=== PATIENT | female | born 1975 | race Caucasian/White ===

== ENCOUNTER 2024-12-20 09:24 | Outpatient (REF) | payer OTHER, SELFPAY ==
--- OUTSIDE RECORDS SUMMARY | 2024-12-19 14:00 | XMS_ITS | Encounter Summary ---
Author Organization [facility] [employer] [facility] Address [address] [place] [address] [address] [place] [address] Care Team Providers Care Gunsmith Apprentice Name Role Phone Toro Anthony CNP Primary Care Provider [phone] Reason for Referral * Imaging (Routine) - Closed Specialty Diagnoses / Procedures Referred By Contkiah t Referred To Contact Radiology Diagnoses Encounter for screening mammogram for breast cancer Procedures BI Mammogram Screening Tomosynthesis Bilateral Toro Anthony CNP [address] [place] [address] Phone: tel: fax: [address] Phone: tel: fax: Referral ID Status Reason Start Date Expiration Date Visits Re quested Visits Authorized [id number] Closed 12/19/2024 12/19/2025 1 1 Encounter Details Date Type Department Care Team (Late st Contact Info) Description 12/19/2024 2:00 PM EDT Office Visit [facility] [address] [place] [address] Toro Anthony CNP [address] [place] [address] Encounter for screening for malignant neoplasm of colon (Primary Dx); Encounter for physical examination; Encounter for screening mammogram for breast cancer; Screening for colon cancer Social History Tobacco Use Types Packs/Day Years Used Date Smoking Tobacco: Never Passive Smoke Exposure: Never Smokeless Tobacco: Never Tobacco Cessation:Counseling Given: Not Answered Housing Stability Answer Date Recorded What is your housing situation today? I have desiree salazar 12/11/[address] you li ve. Do you have problems with any of the following? None of the above 12/11/2024 Food Insecurity Answer Date Recorded Within the past 12 months, y ou worried that your food would run out before you got money to buy more: Never True 12/11/2024 Within the past 12 months,th e food you bought just didn't last and you didn't have enough money to get more: Never True Transportation Answer Date Recorded In the past 12 months, has l ack of transportation kept you from medical appts, meetings, work or from getting things needed for daily living? No 12/11/2024 Utilities Answer Date Recorded In the past 12 months, has t he electric, gas, oil or water company threatened to shut off services in your home? No 12/19/2024 Internet Access Answer Date Recorded Internet Access Q1 No 12/19/2024 Internet Access Q2 I do not want or need it 11/22 Comments No Sex and Gender Information Value Date Recorded Sex Assigned at Female 12/19/2024 1:43 PM EDT Legal Sex Female 2:28 PM EDT Gender Identity Female 12/19/2024 1:43 PM EDT Sexual Orientation Straight 12/19/2024 1: 43 PM EDT documented as of this encounter Last Filed Vital Signs Vital Sign Reading Time Taken Comments Blood Pressure 118/82 12/19/2024 2:20 PM EDT Pulse 72 12/19/2024 2:20 PM EDT Temperature 37.1 C (98.7 F) 12/19/2024 2:20 PM EDT Respiratory Rate 14 12/19/2024 2:20 PM EDT Oxygen Saturation 98% 12/19/2024 2:20 PM EDT Inhaled Oxygen Concentration - - Weight 87.5 kg (193 lb) 12/19/2024 2:20 PM EDT Height 167.6 cm (5' 6 ) 12/19/2024 2:20 PM EDT Body Mass Index 31.15 12/19/2024 2:20 PM EDT documented in this encounter Progress Notes * Toro Anthony CNP - 12/19/2024 2:00 PM EDT Subjective: Olivia Adam is a 49 y.o. female who presents to the office for a new patient visit. Previous PCP unknown. Interim history: none Current concerns: Breast pain in R breast. Pt just looking to update mammogram and cervical cancer screening. Problem List[1] Surgical History[2] Family History[3] Social History Living situation: has secure housing Employment/Education: not reported Diet/exercise: not reported Substance use: denies all substance use Sexual activity: not sexually active Contraception: none Mental health: No data recorded No data recorded Patient's last menstrual period was 12/16/2024. Regular periods occurring each month Allergies[4] Review of Systems Vitals: 12/19/24 1420 BP: 118/82 BP Location: Left arm Patient Position: Sitting BP Cuff Size: Adult Pulse: 72 Resp: 14 Temp: 98.7 ??F (37.1 ??C) TempSrc: Oral SpO2: 98% Weight: 193 lb (87.5 kg) Height: 5' 6 (1.676 m) Physical Exam Constitutional: Appearance: Normal appearance. She is normal weight. Cardiovascular: Rate and Rhythm: Normal rate and regular rhythm. Pulses: Normal pulses. Heart sounds: Normal heart sounds. No murmur heard. No friction rub. No gallop. Pulmonary: Effort: Pulmonary effort is normal. No respiratory distress. Breath sounds: Normal breath sounds. No wheezing or rales. Chest: Breasts: Right: Normal. No swelling, bleeding, inverted nipple, mass, nipple discharge, skin change or tenderness. Left: Normal. No swelling, bleeding, inverted nipple, mass, nipple discharge, skin change or tenderness. Comments: +tenderness to palpation in upper outer quadrant of R breast, no masses palpated Lymphadenopathy: Upper Body: Right upper body: No supraclavicular, axillary or pectoral adenopathy. Left upper body: No supraclavicular, axillary or pectoral adenopathy. Neurological: General: No focal deficit present. Mental Status: She is alert and oriented to person, place, and time. Psychiatric: Mood and Affect: Mood normal. Behavior: Behavior normal. Thought Content: Thought content normal. Judgment: Judgment normal. Assessment & Plan Encounter for screening for malignant neoplasm of colon Encounter for physical examination 1. Anticipatory guidance discussed. Specific topics reviewed: drugs, ETOH, and tobacco, importance of regular dental care, importance of regular exercise, importance of varied diet, minimize junk food, and sex; STD and prevention as appropriate. 2. Age appropriate screenings discussed. 3. Pt declines all due vaccinations. Routine Screening and Health Maintenance Optometry: No Dentist: No ASCVD risk: 49 y.o. femaleobese sedentary lifestyle Lab Review: orders written for new lab studies as appropriate; see orders Routine Cancer Screening Breast CA: due, referred Cervical CA: due, will complete at f/u Colon CA: due, referred Lung CA: not indicated Orders: Lipid Panel, Standard; Future CBC auto differential; Future Comprehensive Metabolic Panel; Future Hemoglobin A1c; Future HIV-1/2 Antigen and Antibodies, Fourth Generation, with Reflexes; Future Hepatitis C Antibody with Reflex to HCV, RNA, Quantitative, Real-Time PCR; Future Encounter for screening mammogram for breast cancer Normal breast exam today, no masses palpated, no skin changes Advised routine mammography and SBE Orders: BI Mammogram Screening Tomosynthesis Bilateral; Future Screening for colon cancer Orders: Cologuard?? colon cancer screening Current Medications[5] There is no immunization history on file for this patient. Follow up in about 1 month (around 01/19/2025) for f/u for pap smear . [1] Patient Active Problem List Diagnosis Acute appendicitis [2] Past Surgical History: Procedure Laterality Date APPENDECTOMY 05/2024 [3] Family History Problem Relation Name Age of Onset Diabetes Mother Other (HTN) Mother Diabetes Father [4] No Known Allergies [5] Current Outpatient Medications Medication Sig Dispense Refill acetaminophen (Tylenol) 500 MG tablet Take 1,000 mg by mouth every 8 (eight) hours. docusate sodium (Colace) 100 MG capsule Take 1 capsule by mouth 2 times daily. oxyCODONE (Roxicodone) 5 MG immediate release tablet Take 5 mg by mouth every 4 (four) hours if needed. No current facility-administered medications for this visit. documented in this encounter Plan of Treatment Upcoming Encounters Date Type Department Care Team ([facility] st Contact Info) Description 01/09/2025 9:30 AM EST Procedure Visit [facility] [address] [place] [address] Toro Anthony CNP [address] [place] [address] Scheduled Orders Name Type Priority Associated Diagnoses Orde r Schedule Lipid Panel, Standard Lab Routine Encounter for physical examination Expected: 12/19/2024 (Approximate), Expires: 12/19/2025 CBC auto differential Lab Routine Encounter for physical examination Expected: 12/19/2024 (Approximate), Expires: 12/19/2025 Comprehensive Metabolic Panel Lab Routine Encounter for physical examination Expected: 12/19/2024 (Approximate), Expires: 12/19/2025 Hemoglobin A1c Lab Routine Encounter for physical examination Expected: 12/19/2024 (Approximate), Expires: 12/19/2025 HIV-1/2 Antigen and Antibodies, Fourth Generation, with Reflexes Lab Routine Encounter for physical examination Expected: 12/19/2024 (Approximate), Expires: 12/19/2025 Hepatitis C Antibody with Reflex to HCV, RNA, Quantitative, Real-Time PCR Lab Routine Encounter for physical examination Expected: 12/19/2024, Expires: 12/19/2025 BI Mammogram Screening Tomosynthesis Bilateral Imaging Routine Encounter for screening mammogram for breast cancer Expected: 12/19/2024, Expires: 02/18/2026 Cologuard colon cancer screening Lab Routine Screening for colon cancer Ordered: 12/19/2024 documented as of this encounter Visit Diagnoses Diagnosis Encounter for screening for malignant neoplasm of colon- Primary Encounter for physical examination Encounter for screening mammogram for breast cancer Screening for colon cancer Special screening for malignant neoplasms, colon documented in this encounter Care Teams Gunsmith Apprentice Relationship Specialty Start Date End Date Toro Anthony CNP [address] [place] [address] PCP - General Family Medicine 12/19/24 documented as of this encounter
--- OUTSIDE RECORDS SUMMARY | 2024-12-20 10:30 | XMS_ITS | Encounter Summary ---
Author Organization [employer] Address [address] [facility] [address] [place] [address] Care Team Providers Care Pinsetter Mechanic Automatic Name Role Phone Toro Anthony JULIUS Primary Care Provider [phone] Encounter Details Date Type Department Care Team (Latest Contact Info) Description 12/19/2024 Travel Social History Tobacco Use Types Packs/Day Years Used Date Smoking Tobacco: Never Passive Smoke Exposure: Never Smokeless Tobacco: Never Housing Stability Answer Date Recorded What is [...] PM EDT documented as of this encounter Plan of Treatment Upcoming Encounters Date Type Department Care Team (Late st Contact Info) Description 01/09/2025 9:30 AM EST Procedure Visit [facility] [address] [place] [address] Toro Anthony CNP [address] [place] [address] documented as of this encounter Visit Diagnoses Not on filedocumented in this encounter Care Teams Pinsetter Mechanic Automatic Relationship Specialty Start Date End Date Toro Anthony CNP [address] [place] [address] PCP - General Family Medicine 12/19/24 documented as of this encounter
--- OUTSIDE RECORDS SUMMARY | 2024-12-20 10:30 | XMS_ITS | Patient Health Record ---
Author Organization [facility] Address [address] [place] [address] Support Name Relationship Address Phone rjuanito Emergency Contact [address] [place] [address] Olivia Adam Guarantor Unknown Reason For Referral No Information Plan Of Treatment Pending Test Test Name Order Date Ultrasound : Breasts, bilateral 05/03/19 18 DEXA 05/02/2017 MAMMOGRAM, SCREENING; B/L US as needed 0 05/02/2017 Insurance Providers Payer Name Payer Address Payer Phone Subscriber Number Group Number Insured Name Patient Relationship to Insured Coverage Start Date Coverage End Date [facility] CLAIM PROCESS DEPT. [address] [address] [place] [address] [id number] Olivia Adam Self - patient is the insured Medical (General) History Surgical History Surgery Date(Month/Year) tubal ligation 2002
--- OUTSIDE RECORDS SUMMARY | 2024-12-20 10:30 | XMS_ITS | Clinical Summary ---
Author Organization [facility] Address [address] [place] [address] Phone Care Team Providers Care Correspondent Name Role Phone Physician, No Pcp Primary Care Provider Unavaila ble Allergies No known active allergies Medications oxyCODONE (ROXICODONE) 5 mg immediate release tablet Take 1 tablet (5 mg total) by mouth every 4 (four) hours if needed for moderate pain. Max Daily Amount: 30 mg 12 tablet 5 Active Additional Information Patient not taking.Reported on 06/18/2024 acetaminophen (TYLENOL) 500 mg tablet Take 2 tablets (1,000 mg total) by mouth every 8 (eight) hours. 30 tablet 5 Active Active Problems Problem Noted Date Diagnosed Date Acute appendicitis 06/05/2024 Surgical History Surgery Date Site/Laterality Comments APPENDECTOMY Medical History Medical History Date Comments No pertinent past medical history Social History Tobacco Use Types Packs/Day Years Used Date Smoking Tobacco: Never Smokeless Tobacco: Never Tobacco Cessation:Counseling Given: Not Answered Alcohol Use Standard Drinks/Week Comments Never 0 (1 standard drink = 0.6 oz pur e alcohol) Interpersonal Safety Answer Date Record ed Physical Abuse Unrecognized value 06/05/2024 Verbal Abuse Unrecognized value 06/05/2024 Comments Unknown Sex and Gender Information Value Date Recorded Sex Assigned at Not on file Legal Sex Female 11:24 AM EDT Gender Identity Not on file Sexual Orientation Not on file Obstetrics History Last Filed Vital Signs Vital Sign Reading Time Taken Comments Blood Pressure 109/77 06/18/2024 9:01 AM EDT Pulse 86 06/18/2024 9:01 AM EDT Temperature 36.6 C (97.8 F) 06/18/2024 9:01 AM EDT Respiratory Rate 15 06/06/2024 11:34 AM EDT Oxygen Saturation 99% 06/06/2024 1:00 PM EDT Inhaled Oxygen Concentration - - Weight 87.3 kg (192 lb 6.4 oz) 06/18/2024 9:01 A M EDT Height 167.6 cm (5' 6 ) 06/18/2024 9:01 AM EDT Body Mass Index 31.05 06/18/2024 9:01 AM EDT Plan of Treatment Health Maintenance Due Date Last Done Comments Breast Cancer Screening 1974 Colorectal Cancer Screening: Colonoscopy 1974 DTaP,Tdap,and Td Vaccines (1 - Tdap) 1993 Hepatitis B Vaccines (1 of 3 - 19+ 3-dose series) 1993 Cervical Cancer Screening: P ap Smear 1995 Depression Screening 02/21/2024 Pneumococcal Vaccine: 50+ Ye ars (1 of 1 - PCV) 2024 Zoster Vaccines (1 of 2) 2024 HIV Screening 06/05/2024 Hepatitis C Screening 06/05/2024 Social Influencers of Health Screening 06/05/2024 COVID-19 Vaccine (1 - 2023-2 5 season) 2024 Influenza Vaccine (#1) 2024 RSV Immunization Adult Patie nts (1 - 1-dose 75+ series) 2049 HIB Vaccines Aged Out No longer eligi ble based on patient's age to complete this topic HPV Vaccines Aged Out No longer eligi ble based on patient's age to complete this topic Hepatitis A Vaccines Aged Out No long er eligible based on patient's age to complete this topic IPV Vaccines Aged Out No longer eligi ble based on patient's age to complete this topic MMR Vaccines Aged Out No longer eligi ble based on patient's age to complete this topic Meningococcal ACWY Vaccine Aged Out N o longer eligible based on patient's age to complete this topic Meningococcal B Vaccine Aged Out No l onger eligible based on patient's age to complete this topic RSV Immunization Patients Un aden 20 months Aged Out No longer eligible b ased on patient's age to complete this topic Varicella Vaccines Aged Out No longer eligible based on patient's age to complete this topic Insurance [facility] [place] [address] Care Teams Correspondent Relationship Specialty Start Date End Date Physician, No Pcp PCP - General 06/05/24
--- OUTSIDE RECORDS SUMMARY | 2024-12-20 10:30 | XMS_ITS | Encounter Summary ---
Author Organization [employer] Address [address] [facility] [address] [place] [address] Care Team Providers Care Accounting Recruiter Name Role Phone Unavailable Primary Care Provider Unavailabl e Reason for Visit * Reason Onset Date Comments chart prep 12/16/2024 Encounter Details Date Type Department Care Team ([facility] st Contact Info) Description 12/16/2024 Telephone C [facility] [address] [place], [place] [id number] [place] chart prep Social History Tobacco Use Types Packs/Day Years Used Date Smoking Tobacco: Never Assessed Housing Stability Answer Date Recorded What is [...] to shut off services in your home? Yes 12/11/2024 Internet Access Answer Date Recorded Internet Access Q1 Yes 12/11/2024 Internet Access Q2 Not on file 12/11/2024 Comments Unknown Sex and Gender Information Value Date Recorded Sex Assigned at Female 12/19/2024 1:43 PM EDT Legal Sex Female 2:28 PM EDT Gender Identity Female 12/19/2024 1:43 PM EDT Sexual Orientation Straight 12/19/2024 1: 43 PM EDT documented as of this encounter Miscellaneous Notes * Telephone Encounter - Reina Ward [place] - 12/16/2024 1:54 PM EDT Chart Prep Labs: not applicable Images: not applicable Referrals: not applicable Vaccines due: Covid, Flu, PCV20, Tdap, Hep B, Td, Zoster, and DTAP Screenings: colonoscopy, mammogram, pap smear, STI screening, and LMP Overdue care gaps: SBIRT, PHQ-9, MARCUS-7, Oral health screening, Disability screen, and Tobacco documented in this encounter Plan of Treatment Upcoming Encounters Date Type Department Care Team ([facility] st Contact Info) Description 01/09/2025 9:30 AM EST Procedure Visit [facility] [address] [place] [address] Toro Anthony, JULIUS [address] [place] [address] documented as of this encounter Visit Diagnoses Not on filedocumented in this encounter
--- OUTSIDE RECORDS SUMMARY | 2024-12-20 10:30 | XMS_ITS | Patient Health Record ---
Author Organization [facility] Address [address] [place], [place] [address] Care Team Providers Care Sonography Technician Name Role Phone Viktor Toussaint Primary Care Provider Allergies No Known Allergies Reason For Referral No Information Medications Medication SIG (Take, Route, Frequency, Duration) Notes Start Date End Date Status Gabapentin 100 MG 2 capsule Orally at bedtime; Duration: 30 day(s) 04/23/2018 Not-Taking Pantoprazole Sodium 40 MG 1 tablet Orall y Once a day; Duration: 90 days 02/04/2022 Active Immunizations Vaccine Route Administration Date Status Comme nts Tdap Unknown 04/23/2018 Administered sent to her pharmacy. Social History Tobacco Use: Social History Observation Description Date Details (start date - stop date) Never Smoker NA - NA Tobacco Use/Smoking Question Answer Notes Are you a nonsmoker Alcohol Screen (Audit-C) Question Answer Notes Did you have a drink containing alcohol in the p ast year? No Points 0 Interpretation Negative Sexual History Question Answer Notes Had sex in the past 12 months (vaginal, oral, or anal)? Yes with Men only Use protection? No Have you ever had a Sexually transmitted disease ? No Tobacco use other than smoking: Question Answer Notes Are you an other tobacco user? No Problems Problem Type SNOMED Code ICD Code Onset Dates Problem Status W/U Status Risk Notes Problem Mixed hyperlipidemia (314926367) Mixed hyperlipidemia (E78.2) Active confirmed Problem Hypocalcemia (2201951) Hypocalcemia (E83.51) Active confirmed Problem Vitamin D deficiency (66085356) Vitamin D deficiency (E55.9) Active confirmed Problem Abnormal mammogram (320947124) Abnormal mammogram (R92.8) Active confirmed Problem Dental caries (95671241) Dental cavities (K02.9) Active confirmed Problem Obesity (011288695) Obesity (BMI 30-39.9) (E66.9) Active confirmed Problem Urinary tract infectious disease (96677870) Urinary tract infection without hematuria, site unspecified (N39.0) Active confirmed Problem History of nephrolithiasis (349693369) History of nephrolithiasis (Z87.442) Active confirmed Problem Body mass index 30.00 to 34.99 (661131802340162) BMI 34.0-34.9,adult (Z68.34) Active confirmed Problem Mammogram - screening (87877424) Visit for screening mammogram (Z12.31) Active confirmed Problem Impaired glucose tolerance (6701694) Glucose intolerance (E74.39) Active confirmed Problem Fibrocystic breast changes (54890312) Fibrocystic breast disease (FCBD), unspecified laterality (N60.19) Active confirmed Plan Of Treatment Pending Test Test Name Order Date Ultrasound : Abdomen and Pelvis 12/29/19 17 Bilateral Diagnostic Mammogr am with additional views, ultrasound and biopsy if needed. 02/18/2022 Colonoscopy 06/11/2021 Colonoscopy 07/08/2021 BILATERAL Screening Mammogra m with additional views, ultrasound and biopsy if needed 02/11/2022 BILATERAL Screening Mammogra m with additional views, ultrasound and biopsy if needed 06/14/2016 SPIROMETRY 06/14/2016 TYMPANOMETRY 06/14/2016 EKG 06/14/2016 CBC w/DIFF, PLATELET CT. 0053-9 06/15/19 17 COMPREHENSIVE METABOLIC 06/14/2016 COMPREHENSIVE METABOLIC 12/28/2016 HEMOGLOBIN A1c (glycohgb) 12/28/2016 HEMOGLOBIN A1c (glycohgb) 06/14/2016 LIPID SCREEN (CORONARY RISK I) 7 LIPID SCREEN (CORONARY RISK I) 7 URINALYSIS with rfx to URINE CULTURE 09/2016 URINALYSIS with rfx to URINE CULTURE VITAMIN D, 25-HYDROXY, SERUM 06/14/2016 TSH W/RFX TO FREE T4 06/14/2016 CBC W/DIFF, PLATELET CT. 12/28/2016 Insurance Providers Payer Name Payer Address Payer Phone Subscriber Number Group Number Insured Name Patient Relationship to Insured Coverage Start Date Coverage End Date [id number] [address] [place] [address] [id number] Olivia Adam Self - patient is the insured Medical (General) History Medical History History ICD Code Annual physical exam Z00.00 Kidney stones 592.0 Surgical History Surgery Date(Month/Year) Tubilagtion 2002
--- OUTSIDE RECORDS SUMMARY | 2024-12-20 10:30 | XMS_ITS | Clinical Summary ---
Author Organization [facility] [employer] [facility] Address [address] [place] [address] [address] [place] [address] Care Team Providers Care Air Cargo Agent Name Role Phone Toro Anthony CNP Primary Care Provider [phone] Allergies No known active allergies Medications docusate sodium (Colace) 100 MG capsule Take 1 capsule by mouth 2 times daily. 06/06/2024 Active acetaminophen (Tylenol) 500 MG tablet Take 1,000 mg by mouth every 8 (eight) hours. 06/06/2024 Active oxyCODONE (Roxicodone) 5 MG immediate release tablet Take 5 mg by mouth every 4 (four) hours if needed. 06/06/2024 Active Active Problems Problem Noted Date Diagnosed Date Acute appendicitis 06/05/2024 Encounters Date Type Department Care Team Description 12/19/2024 2:00 PM EDT Office Visit [facility] [address] [place] [address] Toro Anthony CNP Encounter for screening for malignant neoplasm of colon (Primary Dx); Encounter for physical examination; Encounter for screening mammogram for breast cancer; Screening for colon cancer 12/19/2024 Travel 12/16/2024 Telephone [facility] [address] [place] [address] [place], [place] chart prep 12/11/2024 Patient Outreach [facility] [address] [place] [phone] Toro Anthony CNP Care Coordination (CHW outreach for SDOH housing search-referral completed ) 12/11/2024 Patient Outreach [facility] [address] [place] [address] Ayan Guzman MD Pre-visit Planning (SDOH screening positive and Tobacco screening negative) from Last 3 Months Family History Medical History Relation Name Comments Diabetes Father Diabetes Mother HTN Mother Relation Name Status Comments Father Mother Social History Tobacco Use Types Packs/Day Years [...] Orientation Straight 12/19/2024 1: 43 PM EDT Last Filed Vital Signs Vital Sign [place] [...] Mass Index 31.15 12/19/2024 2:20 PM EDT Plan of Treatment Upcoming Encounters Date Type Department Care Team ([facility] st Contact Info) Description 01/09/2025 9:30 AM EST Procedure Visit [facility] [address] [place] [address] Toro Anthony, STREET CAR INSPECTOR [address] [place] [address] Health Maintenance Due Date Last Done Comments CT Colonography 1974 Colonoscopy 1974 Colorectal Cancer Screening 1974 Depression Screening 1974 FIT DNA/Cologuard 1974 FIT 1974 FOBT 1974 HIV Screening 1974 Sigmoidoscopy 1974 Family Planning (PISQ) 1989 Hepatitis C Screening 1992 DTaP/Tdap/Td Vaccines (1 - Tdap) 1993 Hepatitis B Vaccines (1 of 3 - 19+ 3-dose series) 1993 Pap Smear 1995 Cervical Cancer Screening 2004 HPV/Cotest 2004 Mammogram 2014 Pneumococcal Vaccine: 50+ Ye ars (1 of 1 - PCV) 2024 Zoster Vaccines (1 of 2) 2024 COVID-19 Vaccine (1 - 2023-2 5 season) 2024 Influenza Vaccine (#1) 2024 Alcohol/Substance Use Screening 12/19/2025 Disability Screening 12/19/2025 12/19/2024 SDOH Screening 12/19/2025 12/19/2024 Tobacco Screening 12/19/2025 12/19/2024 RSV Patients and Pa tients Aged 60 years or older (1 - 1-dose 75+ series) 2049 HIB [...] patient's age to complete this topic Meningococcal Vaccine Aged Out No addy randal eligible based on patient's age to complete this topic RSV under 20 months Aged Out No longe r eligible based on patient's age to complete this topic Rotavirus Vaccines Aged Out No longer eligible based on patient's age to complete this topic Insurance [employer] 2 Care Teams Air Cargo Agent Relationship Specialty Start Date End Date Toro Anthony CNP [address] [place] [address] PCP - General Family Medicine 12/19/24
[2024-12-20 14:06] LABS: MANUAL DIFF FLAG NO
[2024-12-20 14:18] LABS: Hematocrit 38.1 % (37.0-47.0); Hemoglobin 12.3 g/dl (12.0-16.0); Imm Gran Abs Auto 0.01 X10*3/uL (0.00-0.03); Imm Gran Pct Auto 0.2 % (0.0-0.4); Lymphocytes Absolute Auto 1.8 X10*3/uL (1.2-4.9); Mean Corpuscular HGB Conc 32.3 g/dl (31.0-35.0); Mean Corpuscular Hemoglobin 29.6 pg (27.0-33.0); Mean Corpuscular Volume 91.8 fL (80.0-98.0); NRBC Abs Auto 0.000 X10*3/uL (0.0-0.012); NRBC Pct Auto 0.0 /100WBC (0.0-0.2); Platelet Count 331 X10*3/uL (160-400); Red Blood Count 4.15 X10*6/uL (4.20-5.50); White Blood Count 5.2 X10*3/uL (4.8-10.8)
[2024-12-20 14:28] LABS: Alanine Aminotransferase 20 U/L (0-31); Albumin Level 4.0 g/dL (3.5-5.0); Alkaline Phosphatase 53 U/L (39-117); Anion Gap 8 (12-20); Aspartate Amino Transferase 30 U/L (5-31); Blood Urea Nitrogen 11 mg/dL (9-16); Calcium 8.4 mg/dL (8.4-10.2); Carbon Dioxide 26 mmol/L (22-29); Chloride 109 mmol/L (96-108); Cholesterol 208 mg/dL (<200); Estimated Glomerular Filt Rate > 60; HDL Cholesterol 38 mg/dL (>40); Potassium 3.8 mmol/L (3.3-5.1); Sodium 139 mmol/L (135-145); Total Protein 7.2 g/dL (6.5-8.0); Triglycerides 99 mg/dL (<150)
[2024-12-21 07:49] LABS: HIV Num 1 0.05 S/CO (0.00-0.99); ~HepC Num1 0.06 S/CO (0.00-0.79); ~Hepatitis C Antibody Nonreactive (Nonreactive)
== END 2024-12-20 09:25 | disposition home or self-care (01) ==
LOC: HO.CHCLDS 09:24
DX: Z00.00 Encounter for general adult medical examination without abnormal findings (principal); Z11.59 Encounter for screening for other viral diseases; Z11.4 Encounter for screening for human immunodeficiency virus [HIV]
CPT/HCPCS: 36415; 80053; 80061; 83036; 85025; 86803; 87389

== ENCOUNTER 2025-01-09 11:18 | Outpatient (REF) | payer OTHER, SELFPAY ==
--- OUTSIDE RECORDS SUMMARY | 2025-01-09 09:30 | XMS_ITS | Encounter Summary ---
Author Organization [employer] [facility] Address [address] [place] [address] [address], [place] [address] Care Team Providers Care High Density Press Operator Name Role Phone Toro Anthony CNP Primary Care Provider [phone] Reason for Referral * Imaging (Routine) - Authorized Specialty Diagnoses / Procedures Referred By Contac t Referred To Contact Radiology Diagnoses Pelvic pain Procedures US Pelvis Transvaginal Toro Anthony CNP [address] [place] [address] Phone: tel: fax: [address] Phone: tel: fax: Referral ID Status Reason Start Date Expiration Date V isits Requested Visits Authorized [id number] Authorized 01/09/2025 01/09/2026 1 1 * Imaging (Routine) - Authorized Specialty Diagnoses / Procedures Referred By Emani t Referred To Contact Radiology Diagnoses Pelvic pain Procedures Us Pelvis complete Toro Anthony CNP [address] [place] [address] Phone: tel: fax: [address] Phone: tel: fax: Referral ID Status Reason Start Date Expiration Date V isits Requested Visits Authorized [id number] Authorized 01/09/2025 01/09/2026 1 1 Reason for Visit * Reason Comments Gynecologic Exam PAP Encounter Details Date Type Department Care Team (Latest Contact Info) Description 01/09/2025 9:30 AM EST Procedure Visit [facility] [address] [place] [address] Raj Robbielva, JULIUS [address] [place] [address] Encounter for screening for cervical cancer (Primary Dx); Encounter for screening examination for sexually transmitted infection; Pelvic pain Social History Tobacco Use Types Packs/Day Years [...] Sign Reading Time Taken Comments Blood Pressure 130/76 01/09/2025 9:20 AM EST Pulse 68 01/09/2025 9:20 AM EST Temperature 36.6 C (97.9 F) 01/09/2025 9:20 AM EST Respiratory Rate 16 01/09/2025 9:20 AM EST Oxygen Saturation 99% 01/09/2025 9:20 AM EST Inhaled Oxygen Concentration - - Weight 88 kg (194 lb) 01/09/2025 9:20 AM EST Height 167.6 cm (5' 6 ) 01/09/2025 9:20 AM EST Body Mass Index 31.31 01/09/2025 9:20 AM EST documented in this encounter Progress Notes * Toro JULIUS Anthony - 01/09/2025 9:30 AM EST Subjective Patient ID: Olivia Adam is a 49 y.o. female who presents for pap smear. HPI Pt had initial OV to establish care 11/2024. At this time pt was reporting some R breast pain. Breast exam was benign. Routine mammogram was ordered, not yet completed pt reports she hasn't received any correspondence regarding appointment. Cologuard was ordered. Last pap unknown, no record, pt reports it was 2 years ago Pt is sexually active with AMAB partner(s), she would like STI screening today Patient's last menstrual period was 12/16/2024. Periods are regular occurring each month. Pt reporting some L sided pelvic pain that comes and goes. She denies vaginal bleeding, discharge, fever, chills. Denies urinary concerns. Review of Systems Objective Vitals: 01/09/25 0920 BP: 130/76 Pulse: 68 Resp: 16 Temp: 97.9 ??F (36.6 ??C) SpO2: 99% Physical Exam Constitutional: Appearance: Normal appearance. HENT: Head: Normocephalic and atraumatic. Genitourinary: General: Normal vulva. Labia: Right: No rash, tenderness, lesion or injury. Left: No rash, tenderness, lesion or injury. Urethra: No prolapse, urethral pain, urethral swelling or urethral lesion. Vagina: Normal. Cervix: Discharge present. No cervical motion tenderness, friability, lesion, erythema, cervical bleeding or eversion. Uterus: Normal. Not deviated, not enlarged, not fixed, not tender and no uterine prolapse. Adnexa: Right adnexa normal and left adnexa normal. Right: No mass, tenderness or fullness. Left: No mass, tenderness or fullness. Rectum: Normal. Neurological: General: No focal deficit present. Mental Status: She is alert and oriented to person, place, and time. Psychiatric: Mood and Affect: Mood normal. Behavior: Behavior normal. Assessment/Plan Problem List Items Addressed This Visit None Visit Diagnoses Encounter for screening for cervical cancer - Primary Relevant Orders Pap Smear Encounter for screening examination for sexually transmitted infection Relevant Orders STI testing add on (NG, CT, Trich) Bacterial Vaginosis Panel Pelvic pain Pap obtained today, if normal repeat in 5 years 12/2029 We obtained STI pap add on and BV panel to r/o infectious cause for pelvic pain Will obtain pelvic US to r/o structural cause for pelvic pain Bimanual exam was benign Pt to schedule mammo Pt to submit cologuard documented in this encounter Plan of Treatment Scheduled Orders Name Type Priority Associated Diagnoses Orde r Schedule Pap Smear Pathology and Cytology Routine Encounter for screening for cervical cancer Ordered: 01/09/2025 STI testing add on (NG, CT, Trich) Pathology and Cytology Routine Encounter for screening examination for sexually transmitted infection Ordered: 01/09/2025 Us Pelvis complete Imaging Routine Pelvic pain Expected: 01/09/2025, Expires: 01/09/2026 US Pelvis Transvaginal Imaging Routine Pelvic pain Expected: 01/09/2025, Expires: 01/09/2026 documented as of this encounter Procedures Procedure Name Priority Date/Time Associated Diagnosis Comments BACTERIAL VAGINOSIS PANEL Routine 01/09/2025 9:51 AM EST Encounter for screening examination for sexually transmitted infection documented in this encounter Results * Bacterial Vaginosis Panel (01/09/2025 9:51 AM EST) TRICHOMONAS VAGINALIS DETECTION BY PCR NOT DETECTED Not Detect [facility] BACTERIAL VAGINOSIS DETECTION BY PCR NEGATIVE Negative [facility] Comment:The BV organism targ ets of the Xpert Xpress MVP test can becommensal in women; Xpert Xpress MVP positive results forbacterial vaginosis should be considered in conjunction withother clinical and patient information to determine thedisease status. Organisms that are not detected by the XpertXpress MVP test have also been reported to be associatedwith BV and aerobic vaginitis.The Xpert Xpress MVP test performance has not been evaluatedin patients under the age of 14. INGRID GROUP DETECTION BY PCR NOT DETECTED Not Detect [facility] Ingrid glab krusei PCR NOT DETECTED Not Detect [facility] Swab Vaginal structure / Unknown 01/09/2025 9:51 AM EST 01/09/2025 2:09 PM EST Toro Anthony [facility] MICROBIOLOGY - GENERA L ORDERABLES Final Result [facility] [address] [place] [address] [phone] documented in this encounter Visit Diagnoses Diagnosis Encounter for screening for cervical cancer- Primary Encounter for screening examination for sexually transmitted infection Pelvic pain documented in this encounter Care Teams High Density Press Operator Relationship Specialty Start Date End Date Toro Anthony CNP [address] [place] [address] PCP - General Family Medicine 12/19/24 documented as of this encounter
[2025-01-09 15:22] LABS: Bacterial Vaginosis PCR NEGATIVE (Negative); Candida Group PCR NOT DETECTED (Not Detect); Candida glab krusei PCR NOT DETECTED (Not Detect); Trichomonas vaginalis PCR NOT DETECTED (Not Detect)
--- OUTSIDE RECORDS SUMMARY | 2025-01-09 17:31 | XMS_ITS | Patient Health Record ---
Author Organization [facility] Address [address] [place], [place] [id number] Care Team Providers Care Rate Reviewer Name Role Phone Viktor Toussaint Primary Care [...] W/U Status Risk Notes Problem Mixed hyperlipidemia (314753184) Mixed hyperlipidemia (E78.2) Active confirmed Problem Hypocalcemia (2241580) Hypocalcemia (E83.51) Active confirmed Problem Vitamin D deficiency (53132308) Vitamin D deficiency (E55.9) Active confirmed Problem Abnormal mammogram (732320543) Abnormal mammogram (R92.8) Active confirmed Problem Dental caries (83228484) Dental cavities (K02.9) Active confirmed Problem Obesity (824226752) Obesity (BMI 30-39.9) (E66.9) Active confirmed Problem Urinary tract infectious disease (58928684) Urinary tract infection without hematuria, site unspecified (N39.0) Active confirmed Problem History of nephrolithiasis (591789359) History of nephrolithiasis (Z87.442) Active confirmed Problem Body mass index 30.00 to 34.99 (638351002662698) BMI 34.0-34.9,adult (Z68.34) Active confirmed Problem Mammogram - screening (07563474) Visit for screening mammogram (Z12.31) Active confirmed Problem Impaired glucose tolerance (2536924) Glucose intolerance (E74.39) Active confirmed Problem Fibrocystic breast changes (85894256) Fibrocystic breast disease (FCBD), unspecified laterality (N60.19) [...] 06/14/2016 COMPREHENSIVE METABOLIC 12/28/2016 HEMOGLOBIN A1c (glycohgb) 06/14/2016 HEMOGLOBIN A1c (glycohgb) 12/28/2016 LIPID SCREEN (CORONARY RISK I) 7 LIPID [...] End Date [employer] [address] [place] [address] [id number] Olivia Adam Self - patient is the insured Medical (General) History Medical History History ICD Code Annual physical exam Z00.00 Kidney stones 592.0 Surgical History Surgery Date(Month/Year) Tubilagtion 2002
--- OUTSIDE RECORDS SUMMARY | 2025-01-09 17:31 | XMS_ITS | Clinical Summary ---
Author Organization [facility] Address [address] [place] [address] Phone Care Team Providers Care Polysomnography Tech Name Role Phone Physician, No Pcp Primary [...] Health Screening 06/05/2024 COVID-19 Vaccine (1 - 2024-2 6 season) 2024 Influenza Vaccine (#1) 2024 RSV [...] patient's age to complete this topic Insurance [facility] Care Teams Polysomnography Tech Relationship Specialty Start Date End Date Physician, No Pcp PCP - General 06/05/24
--- OUTSIDE RECORDS SUMMARY | 2025-01-09 17:31 | XMS_ITS | Encounter Summary ---
Author Organization [employer] Address [address] [facility] [address] [place] [address] Care Team Providers Care Business Continuity Coordinator Name Role Phone Toro Anthony MEDICAL STAFF SPECIALIST Primary Care Provider [phone] [phone] Encounter Details Date Type Department Care Team (Latest Contact Info) Description 01/09/2025 Travel Social History Tobacco Use Types Packs/Day [...] as of this encounter Plan of Treatment Not on file documented as of this encounter Visit Diagnoses Not on filedocumented in this encounter Care Teams Business Continuity Coordinator Relationship Specialty Start Date End Date Toro Anthony CNP [address] [place] [address] PCP - General Family Medicine 12/19/24 documented as of this encounter
--- OUTSIDE RECORDS SUMMARY | 2025-01-09 17:32 | XMS_ITS | Clinical Summary ---
Author Organization [employer] Address [address] [place] [address] [address] [place] [address] Care Team Providers Care Hydrogen Operator Name Role Phone Toro Anthony CNP Primary Care Provider [phone] Allergies No known active allergies Medications docusate [...] Encounters Date Type Department Care Team Description 01/09/2025 9:30 AM EST Procedure Visit [facility] [address] [place] [address] Toro Anthony CNP Encounter for screening for cervical cancer (Primary Dx); Encounter for screening examination for sexually transmitted infection; Pelvic pain 01/09/2025 Travel 01/02/2025 Telephone [facility] [address] [place] [address] Toro Anthony CNP chart prep 12/23/2024 Results Follow-Up [facility] [address] [place] [address] Toro Anthony CNP Lipid Panel, Standard, CBC auto differential, Comprehensive Metabolic Panel, Additional followed-up results: 3 12/19/2024 2:00 PM EDT Office Visit [facility] [address] [place] [address] Toro Anthony CNP Encounter for screening for malignant neoplasm of colon (Primary Dx); Encounter for physical examination; Encounter for screening mammogram for breast cancer; Screening for colon cancer 12/19/2024 Travel 12/16/2024 Telephone [facility] [address] [place] [address] [place], [place] chart prep 12/11/2024 Patient Outreach [facility] [address] [place] [address] Toro Anthony CNP Care Coordination ([facility] outreach for SDOH housing search-referral completed ) 12/11/2024 Patient Outreach [facility] [address] [place] [address] Ayan Guzman MD Pre-visit Planning (SDOH screening [...] Mass Index 31.31 01/09/2025 9:20 AM EST Plan of Treatment Health Maintenance Due Date Last Done Comments CT Colonography 1974 Colonoscopy 1974 Colorectal Cancer Screening 1974 Depression Screening 1974 FIT DNA/Cologuard 1974 FIT 1974 FOBT 1974 Sigmoidoscopy 1974 Family Planning (PISQ) 1989 DTaP/Tdap/Td Vaccines (1 - Tdap) 1993 Hepatitis B Vaccines (1 of 3 - 19+ 3-dose series) 1993 Pap Smear 1995 Cervical Cancer Screening 2004 HPV/Cotest 2004 Mammogram 2014 Pneumococcal Vaccine: 50+ Ye ars (1 of 1 - PCV) 2024 Zoster Vaccines (1 of 2) 2024 COVID-19 Vaccine ( - 2024-2 6 season) 2024 Influenza Vaccine (#1) 2024 Alcohol/Substance Use Screening 12/19/2025 Disability Screening 12/19/2025 12/19/2024 SDOH Screening 12/19/2025 12/19/2024 Tobacco Screening 12/19/2025 12/19/2024 RSV Patients and Pa tients Aged 60 years or older (1 - 1-dose 75+ series) 2049 HIV Screening Completed 12/20/2024 Hepatitis C Screening Completed 12/20/2024 HIB Vaccines Aged Out No longer eligi [...] on patient's age to complete this topic Procedures Procedure Name Priority Date/Time Associated Diagnosis Comments BACTERIAL VAGINOSIS PANEL Routine 01/09/2025 9:51 AM EST Encounter for screening examination for sexually transmitted infection HEPATITIS C AB W/REFL TO HCV RNA, QN, PCR Routine 12/20/2024 9:31 AM EDT Encounter for physical examination HIV 1/2 ANTIGEN/ANTIBODY, FOURTH GENERATION W/RFL Routine 12/20/2024 9:31 AM EDT Encounter for physical examination HEMOGLOBIN A1C Routine 12/20/2024 9:31 AM EDT Encounter for physical examination COMPREHENSIVE METABOLIC PANEL Routine 12/20/2024 9:31 AM EDT Encounter for physical examination CBC WITH AUTO DIFFERENTIAL Routine 12/20/2024 9:31 AM EDT Encounter for physical examination LIPID PANEL, STANDARD Routine 12/20/2024 9:31 AM EDT Encounter for physical examination from Last 3 Months Results * Bacterial Vaginosis Panel (01/09/2025 9:51 AM EST) TRICHOMONAS VAGINALIS DETECTION BY PCR NOT DETECTED Not Detect [facility] BACTERIAL VAGINOSIS DETECTION BY PCR NEGATIVE Negative [facility] Comment:The BV organism targ ets [...] DETECTION BY PCR NOT DETECTED Not Detect [facility] Ingrid glab krusei PCR NOT DETECTED Not Detect [facility] Swab Vaginal structure / Unknown 01/09/2025 9:51 AM EST 01/09/2025 2:09 PM EST [facility] LAB MICROBIOLOGY - GENERA L ORDERABLES Final Result [facility] [address] [place] [phone] * (ABNORMAL) CBC auto differential (12/20/2024 9:31 AM EDT) White Blood Count 5.2 4.8 - 10.8 X10*3/uL [facility] Red Blood Count 4.15(L) 4.20 - 5.50 X10*6/uL [facility] Hemoglobin 12.3 12.0 - 16.0 g/dl [facility] Hematocrit 38.1 37.0 - 47.0 % [facility] Mean Corpuscular Volume 91.8 80.0 - 98.0 fL [facility] Mean Corpuscular Hemoglobin 29.6 27.0 - 33.0 pg [facility] Mean Corpuscular HGB Conc 32.3 31.0 - 35.0 g/dl [facility] Red Cell Distribution Width 13.1 11.0 - 16.0 % [facility] Platelet Count 331 160 - 400 X10*3/uL [facility] Mean Platelet Volume 9.6 9.4 - 12.3 fL [facility] Neutrophils Percent Auto 54.3 45 - 73 % [facility] Imm Gran Pct Auto 0.2 0.0 - 0.4 % [facility] Lymphocytes Percent Auto 34.6 20 - 40 % [facility] Monocytes Percent Auto 6.6 2 - 11 % [facility] Eosinophils Percent Auto 3.5 0 - 4 % [facility] Basophils Percent Auto 0.8 0 - 2 % [facility] NRBC Pct Auto 0.0 0.0 - 0.2 /100WBC [facility] Neutrophils Absolute Auto 2.8 2.0 - 8.3 x10*3/uL [facility] Imm Gran Abs Auto 0.01 0.00 - 0.03 X10*3/uL [facility] Lymphocytes Absolute Auto 1.8 1.2 - 4.9 X10*3/uL [facility] Monocytes Absolute Auto 0.3 0.1 - 1.2 X10*3/uL [facility] Eosinophils Absolute Auto 0.2 0.0 - 0.4 X10*3/uL [facility] Basophils Absolute Auto 0.0 0.0 - 0.2 X10*3/uL [facility] NRBC Abs Auto 0.000 0.0 - 0.012 X10*3/uL [facility] Blood Venous blood specimen / Unknown 12/20/2024 9:31 AM EDT 12/20/2024 2:00 PM EDT [facility] [employer] LAB BLOOD ORDERABLES Beti l Result [facility] [address] [place] [address] [phone] * Hepatitis C Antibody with Reflex to HCV, RNA, Quantitative, Real-Time PCR (12/20/2024 9:31 AM EDT) Hepatitis C Antibody Nonreactive Nonreactive [facility] Comment:Antibodies to HCV no t detected; does not exclude early acuteHCV infection. Blood Venous blood specimen / Unknown 12/20/2024 9:31 AM EDT 12/20/2024 2:00 PM EDT [facility] LAB BLOOD ORDERABLES Beti l Result Performing Organization Address [facility]/ZIP Co de Phone Number [facility] [address] [place] [address] [phone] * HIV-1/2 Antigen and Antibodies, Fourth Generation, with Reflexes (12/20/2024 9:31 AM EDT) HIV AB/AG Nonreactive Nonreactive [facility] Comment:HIV-1 p24 Ag and/or HIV-1/HIV-2 Ab not detected.A test result that is nonreactive does not exclude thepossibility of exposure to or infection with HIV-1 and/orHIV-2. Nonreactive results in this assay for individualswith prior exposure to HIV-1 and/or HIV-2 may be due toantigen and antibody levels that are below the limit ofdetection of this assay.The [employer] HIV Ag/Ab Combo assay result andsupplemental assay results should be interpreted inconjunction with the patient's clinical presentation,history and other laboratory results. If the results areinconsistent with clinical evidence, additional testing issuggested to confirm the result. Blood Venous blood specimen / Unknown 12/20/2024 9:31 AM EDT 12/20/2024 2:00 PM EDT [facility] LAB BLOOD ORDERABLES Beti l Result Performing Organization Address [facility]/ZIP Co de Phone Number [facility] [address] [place] [phone] * Hemoglobin A1c (12/20/2024 9:31 AM EDT) Hemoglobin A1c 5.4 <6.0 % [facility] Comment:Hemoglobin A1C Refer ence Range Adults: 4.8 - 6.0 % Non diabetic: < 6.0 % Goal: < 7.0 %Additional Action Suggested: > 8.0 %Note: Hemoglobin A1c results are invalid for patients with abnormal amounts of HbF. Blood transfusions may impact the HbA1c concentration in the patient sample. Estimated Average Glucose 108 mg/dL [facility] Comment:eAG = Estimated ave rage glucose which is %A1C expressed asaverage glucose, using the formula of the I7G-IefejgxEhghjkl Glucose study (ADAG), Diabetes Care, Vol.31,#8,Sep. 2007 Blood Venous blood specimen / Unknown 12/20/2024 9:31 AM EDT 12/20/2024 2:00 PM EDT [facility] LAB BLOOD ORDERABLES Beti bass Result [facility] [address] [place] [phone] * (ABNORMAL) Lipid Panel, Standard (12/20/2024 9:31 AM EDT) Triglycerides 99 <150 mg/dL [facility] Comment:Desirable Triglyceri de: less than 150 mg/dLBorderline High Triglyceride 150-199 mg/dLHigh Triglyceride: 200-499 mg/dLVery High Triglyceride: greater than or equal to 5OO mg/dL Cholesterol 208(H) <200 mg/dL [facility] Comment:Desirable Cholestero l: less than 200 mg/dLBorderline High Cholesterol: 200-239 mg/dLHigh Cholesterol: greater than 239 mg/dL LDL Cholesterol Calculated 151(H) <100 mg/dL [facility] Comment:Desirable LDL: less than 100 mg/dLNear Optimal/Above Optimal LDL: 110- 129 mg/dLBorderline High LDL: 130-159 mg/dLHigh LDL: 160-189 mg/dLVery High LDL: greater than or equal to 190 mg/dL HDL Cholesterol 38(L) >40 mg/dL [facility] Comment:Desirable HDL: great er than 40 mg/dL Note: This HDL assay may give artificially low results in patients with liver disease. Blood Venous blood specimen / Unknown 12/20/2024 9:31 AM EDT 12/20/2024 2:00 PM EDT [facility] LAB BLOOD ORDERABLES Beti l Result [facility] [address] [place] [address] [phone] * (ABNORMAL) Comprehensive Metabolic Panel (12/20/2024 9:31 AM EDT) Sodium 139 135 - 145 mmol/L [facility] Potassium 3.8 3.3 - 5.1 mmol/L [facility] Chloride 109(H) 96 - 108 mmol/L [facility] Carbon Dioxide 26 22 - 29 mmol/L [facility] Anion Gap 8(L) 12 - 20 [facility] Urea Nitrogen (BUN) 11 9 - 16 mg/dL [facility] Creatinine, Serum 0.67 0.5 - 1.4 mg/dL [facility] Estimated Glomerular Filt Rate >60 [facility] Comment:Chronic Kidney Disea se: Estimated GFR < 60 mL/min/[id number] Kidney Disease: Estimated GFR < 15 mL/min/1.73m2 Glucose 94 60 - 115 mg/dL [facility] Calcium 8.4 8.4 - 10.2 mg/dL [facility] Bilirubin, Total 0.8 0.0 - 1.0 mg/dL [facility] Aspartate Amino Transferase 30 5 - 31 U/L [facility] Alanine Aminotransferase 20 0 - 31 U/L [facility] Total Protein 7.2 6.5 - 8.0 g/dL [facility] Albumin Level 4.0 3.5 - 5.0 g/dL [facility] Alkaline Phosphatase 53 39 - 117 U/L [facility] Blood Venous blood specimen / Unknown 12/20/2024 9:31 AM EDT 12/20/2024 2:00 PM EDT [facility] LAB BLOOD ORDERABLES Beti l Result [facility] [address] [place] [phone] [phone] from Last 3 Months Insurance [facility] 2 Care Teams Hydrogen Operator Relationship Specialty Start Date End Date Toro Anthony CNP [address] [place] [phone] PCP - General Family Medicine 12/19/24
--- OUTSIDE RECORDS SUMMARY | 2025-01-09 17:32 | XMS_ITS | Patient Health Record ---
Author Organization [facility] Address [address] [place] [address] Support Name Relationship Address Phone rjuanito Emergency Contact [address] [place] [address] Olivia Adam Guarantor Unknown [phone] Reason For Referral No Information Plan Of Treatment Pending Test Test Name Order Date Ultrasound : Breasts, bilateral 05/03/19 18 DEXA 05/02/2017 MAMMOGRAM, SCREENING; B/L US as needed 0 05/02/2017 Insurance Providers Payer Name Payer Address Payer Phone Subscriber Number Group Number Insured Name Patient Relationship to Insured Coverage Start Date Coverage End Date [facility] CLAIM PROCESS DEPT. [address] [address] [place] [phone] [id number] [employer] Adam Self - patient is the insured Medical (General) History Surgical History Surgery Date(Month/Year) tubal ligation 2002
[2025-01-15 19:39] LABS: C. trachomatis RNA TMA NOT DETECTED (NOT DETECTED); N. gonorrhoeae RNA TMA NOT DETECTED (NOT DETECTED); Trichomonas (NAAT) NOT DETECTED (NOT DETECTED)
== END 2025-01-09 11:19 | disposition home or self-care (01) ==
LOC: HO.CHCLNP 11:18
DX: Z12.4 Encounter for screening for malignant neoplasm of cervix (principal); Z11.51 Encounter for screening for human papillomavirus (HPV); Z20.2 Contact with and (suspected) exposure to infections with a predominantly sexual mode of transmission
CPT/HCPCS: 81515; 87491; 87591; 87626; 87661; 88175